=== PATIENT | male | born 1960 | race American Indian/Alaskan Native ===

== ENCOUNTER 2017-09-27 11:22 | Emergency (ER) | payer OTHER ==
[~2017-09-27] VITALS: Ht 172.7 cm; Wt 90.7 kg
[~2017-09-27 11:22] MED LIST: ASPI325 PO; Adult Low Dose81 MG PO; Aspir-Trin325 MG PO; Crestor20 MG PO; DULO60 PO; EFFIENT PO; INSULANPEN SC; Isosorbide Mono30 MG PO; MELO7.5 PO; METO50 PO; NEBI5 PO; Prednisone20 MG PO; ROSU10TA PO; TAMS.4ER PO; TRAM50 PO; WARF4 PO; Zithromax250 MG PO
[2017-09-27] MEDS ORDERED: Voltaren100 GM TOP (12:57)
[2017-09-27] MEDS ORDERED: NAPR550 PO (12:57)
== END 2017-09-27 13:05 | disposition home or self-care (01) ==
LOC: ER 11:22
DX: M25.462 Effusion, left knee (principal); Z88.1 Allergy status to other antibiotic agents; Z88.8 Allergy status to other drugs, medicaments and biological substances; Z79.899 Other long term (current) drug therapy; Z79.4 Long term (current) use of insulin; Z79.01 Long term (current) use of anticoagulants; Z79.82 Long term (current) use of aspirin; I25.2 Old myocardial infarction; Z85.47 Personal history of malignant neoplasm of testis; F17.200 Nicotine dependence, unspecified, uncomplicated
CPT/HCPCS: 73564; 96372; 99283; J1885